=== PATIENT | female | born 1985 | race African-American/Black ===

== ENCOUNTER → 2017-05-02 | Outpatient (CLI) | payer OTHER ==
[2016-05-31 03:30] VITALS: BP 95/66
--- NOTE | 2017-05-02 17:34 | RAD ---
Obstetrical ultrasound, 05/02/2017: History: Check dates There is a single intrauterine fetus in a cephalic orientation. The biparietal diameter measures 8.2 cm compatible with a gestational age of 32-33 weeks. The femur length measurement suggests a gestational age of 34-35 weeks. The average gestational age based on all the measurements is 33 weeks and 4 days yielding a sonographic EDC of 06/16/2017. Normal activity and heart motion were seen. The heart rate is 150 bpm. The head to abdominal circumference ratio is slightly elevated at 1.13. This raises the possibility of asymmetric IUGR. The weight was estimated at 4 pounds and 10 ounces +/- 11 ounces. The amniotic fluid volume is at the lower limits of normal. The amniotic fluid index was measured at 5.8. Some of the structures were suboptimally delineated due to the late stage of the and the relatively low volume of amniotic fluid. The bladder and stomach were visualized. The kidneys are unremarkable. No specific abnormality is detected. The placenta lies anteriorly. The cervix could not be adequately visualized due to the overlying head. IMPRESSION: 1. Single viable intrauterine fetus of 33-34 weeks gestational age as described above. 2. Borderline oligohydramnios. 3. Mildly elevated head to abdominal circumference ratio raising the possibility of asymmetric IUGR. 4. Sonographic follow-up at a tertiary referral center is suggested.
== END | disposition home or self-care (01) ==
LOC: US 14:13
PROVIDERS: ATTEND Family Medicine
DX: O41.03X0 Oligohydramnios, third trimester, not applicable or unspecified (principal); Z3A.34 34 weeks gestation of pregnancy
CPT/HCPCS: 76805

== ENCOUNTER → 2017-12-05 | Outpatient (CLI) | payer OTHER | END | disposition home or self-care (01) | LOC: US 19:55 | DX: R10.2 Pelvic and perineal pain (principal); R10.11 Right upper quadrant pain | CPT/HCPCS: 76830; 76856 ==

== ENCOUNTER 2019-04-30 16:25 | Day surgery (SDC) | payer OTHER ==
[~2019-04-30 16:25] MED LIST changes: -DEXAMETHASONE SOD PHOS 4 MG/ML VIAL ONE; -DOXY100C14 PO; -HYDR-3164 PO; -KETOROLAC 30 MG/ML INJ FOR OR. INJ ONE; -LIDOCAINE 2% PF 5 ML VIAL. ONE; -METH0.2T36 PO; -ONDANSETRON PF 4 MG/2 ML VIAL. ONE; -OXYTOCIN 10 UNIT/ML VIAL. ONE; -PROPOFOL 20 ML IV ONE; -SEVOFLURANE 31 TO 60 MINUTES. IH ONE; -fentaNYL PF VIAL 100 MCG/2 ML VIAL ONE
[2019-04-30] MEDS ORDERED: PHENYLEPHRINE in 0.9% NACL PF 1 MG/10 ML SYRINGE. IV ONE (17:21)
[2019-04-30] MEDS ORDERED: GLYCOPYRROLATE 1 MG/5 ML VIAL. ONE (17:23)
--- NOTE | 2019-04-30 17:51 | PDOC ---
BRIEF OPERATIVE NOTE Date: Apr 30, 2019 Pre-Op Diagnosis Incomplete ab Post-Op Diagnosis Same Procedure Performed Suction D and C U/S guided Surgeon Onesimo Anesthesia Type: General Blood Loss 100cc Specimens Obtained POC Complications None TANIA ACEVEDO MD Apr 30, 2019 17:51
[2019-04-30] MEDS ORDERED: DOXY100C14 PO (17:55)
[2019-04-30] MEDS ORDERED: NAPR-514 PO (17:55)
[2019-04-30] MEDS ORDERED: METH0.2T36 PO (17:55)
[2019-04-30] MEDS ORDERED: HYDR-3164 PO (17:55)
[2019-04-30] MEDS ORDERED: IV RINGERS,LACTATED 1000ML 1,000 ML IV SCH (18:03)
[2019-04-30] MEDS ORDERED: fentaNYL PF VIAL 100 MCG/2 ML VIAL IV PRN (18:15)
[2019-04-30] MEDS ORDERED: HYDROmorphone 2 MG/ML VIAL IV PRN (18:15)
[2019-04-30] MEDS ORDERED: PROCHLORPERAZINE 10 MG/2 ML VIAL. IV PRN (18:15)
[2019-04-30] MEDS ORDERED: ONDANSETRON PF 4 MG/2 ML VIAL. IV PRN (18:15)
[2019-04-30] MEDS: MORPHINE SULFATE 2 MG/ML VIAL. IV PRN ×2 (18:20→18:29)
[2019-04-30] MEDS: fentaNYL PF VIAL 100 MCG/2 ML VIAL IV PRN ×2 (18:24→18:59)
--- NOTE | 2019-04-30 18:28 | OP ---
DATE OF SURGERY: 04/30/2019 PREOPERATIVE DIAGNOSIS: Incomplete . POSTOPERATIVE DIAGNOSIS: Incomplete . PROCEDURE: Suction D and C under ultrasound guidance. SURGEON: Tania Echols MD TELEMETRY REGISTERED NURSE: None. ANESTHESIA: General. ESTIMATED BLOOD LOSS: 100 mL. SPECIMENS: Products of conception. COMPLICATIONS: None. CONDITION: Stable. DESCRIPTION OF PROCEDURE: After risks, benefits, indications, alternatives discussed in detail with the patient, the patient was brought to OR theater, placed in the dorsal lithotomy position in Vini stirrups. After adequate general anesthesia, the patient prepped and draped in usual sterile manner. It was noted that patient had a female circumcision, clitoris, labia minora are absent. Cervix appeared normal, dilated up to approximately 4-5 Hegar dilator. Exam under anesthesia showed patient's uterus was axial at approximately 13-week size. With ultrasound guidance and dilating the cervix up to receive a #10 curved cannula, a gentle suction curettage was performed in all quadrants, which was documented by ultrasonography. A ring forceps was placed within the cavity to receive any other decidual or tissue approximately, a 1 x 4 piece of decidual tissue, which may or may not include the embryo, was included and handed off the operative field. A sharp curettage was also performed under ultrasound guidance. Curettage was noted by ultrasound by the usual cry. Suction cannula was once again placed. No further products of conception were seen going through the clear tubing. Areas of the cervix were abrased with single tooth tenaculum were noted and the ring was placed on that for additional hemostasis. Vaginal vault was wiped clear of any tissue or blood. The tubing was cleared with normal saline. The anterior lip of the cervix had a 0 Vicryl tie placed in for additional hemostasis from the puncture sites. The uterus had clamped down approximately 8-week size. No further bleeding noted. Procedure was terminated. Sponge, needle and instrument counts were correct x 2 per nursing staff. The patient went to postop anesthesia recovery in stable condition. TANIA ECHOLS MD DR: JAMAAL/nts JOB#: [id number] / [id number]
[2019-04-30] MEDS ORDERED: HYDROcodone/APAP 5/325MG 1 TAB TABLET ONE (18:56)
[2019-04-30] MEDS ORDERED: HYDROcodone/APAP 5/325MG 1 TAB TABLET PO ONE (19:00)
[2019-04-30 19:46] VITALS: BP 117/66
--- NOTE | 2019-04-30 20:13 | RAD ---
Exam: Ultrasound pelvis Indication: Intraoperative removal of products of conception Technique: Real-time grayscale and color Doppler images of the pelvis were obtained by the department photolithographic stripper. Comparisons: Ultrasound same day FINDINGS: Several images of the uterus labeled removal demonstrate anechoic structure within the endometrium with layering hyperechoic material. Subsequent images demonstrate less material in the endometrium. IMPRESSION: Intraoperative ultrasound as described above. See procedural note for further details. Electronically signed by: Miranda Briscoe MD (04/30/2019 8:10 PM) [employer]
--- NOTE | 2019-05-04 17:06 | PATHOLOGY ---
[facility] Accession Number: [id number] . 01 Material submitted: . product of conception - PRODUCTS OF CONCEPTION . 01 Clinical history: . demise: Incomplete . 02 Diagnosis: Uterine contents, suction D and C: - Products of conception, comprised of segments of tissue, placental membranous tissue, focally degenerating immature chorionic villi showing intervillous fibrin deposition and acute inflammation and showing villitis of unknown etiology, and segments of decidual tissue showing focal necrosis and acute inflammation. . (JPM:mm; 05/04/2019) [facility]/05/04/2019 . 02 Electronically signed: . Clark Del Toro MD, Pathologist NPI- [id number] . 01 Gross description: . The specimen is received in formalin, labeled "Ellen Suazo, products of conception", consists of a stockinet bag containing multiple irregular fragments of hemorrhagic and rollins-pink membranous soft tissues measuring 6.8 x 6.0 x 1.0. Also received within the container is an irregular fragment of arreola-white focally hemorrhagic rubbery tissue measuring 6.3 x 1.5 x 1.4 cm. This segment has a thin-walled cyst filled with viscous material and measuring 1.5 cm in greatest dimension. Spongy placental tissue, parts are identified with no discrete grapelike cystic structures. Representatively submitted in A1-A4. (A1-A2 = placental and tissue, A3 = cyst, separate fragment and A4 = food service representative section of separate fragment) ([facility]; 05/03/2019) [facility] . 02 Pathologist provided ICD-10: O03.4 . 02 CPT . 151749 Specimen Comment: A courtesy copy of this report has been sent to Specimen Comment: [phone], . Specimen Comment: Report sent to / DR REDDING Performed at: [address] [facility], [place] [id number] MD Zaki Barnes MD Phone: [phone] Performed at: [facility] [address] [place], [place] [id number] MD Clark Del Toro MD Phone: [phone]
== END 2019-04-30 19:56 | disposition home or self-care (01) ==
LOC: US 16:25
PROVIDERS: ATTEND Specialist
DX: O03.4 Incomplete spontaneous abortion without complication (principal); Z3A.08 8 weeks gestation of pregnancy
CPT/HCPCS: 59812; 76998; 88305; A7015; C1769; C1892; J0780; J2270; J2370; J3010; J3490; J7120

== ENCOUNTER → 2019-04-30 | Outpatient (CLI) | payer OTHER ==
[2017-05-19 10:28] VITALS: BP 90/50
[~2019-04-30] MED LIST: DEXAMETHASONE SOD PHOS 4 MG/ML VIAL ONE; DOXY100C14 PO; HYDR-3164 PO; KETOROLAC 30 MG/ML INJ FOR OR. INJ ONE; LIDOCAINE 2% PF 5 ML VIAL. ONE; METH0.2T36 PO; NAPR-514 PO; ONDANSETRON PF 4 MG/2 ML VIAL. ONE; OXYC1TAB15 PO; OXYTOCIN 10 UNIT/ML VIAL. ONE; PNV1TABL25 PO; PROPOFOL 20 ML IV ONE; SEVOFLURANE 31 TO 60 MINUTES. IH ONE; fentaNYL PF VIAL 100 MCG/2 ML VIAL ONE
--- NOTE | 2019-04-30 16:36 | RAD ---
Indication: Confirm demise. IMPRESSION: Grayscale, color Doppler and spectral waveform images of the pelvis COMPARISON: None FINDINGS: Intrauterine seen with crown-rump length measuring 3.5 cm corresponding to estimated gestation age of 10 weeks 3 days. No cardiac activity seen. Uterus is anteverted and measures 11.0 x 6.1 x 6.9 cm. Placenta is posterior and fundal in location. No free pelvic fluid. IMPRESSION: Intrauterine without sonographic evidence of cardiac activity. Electronically signed by: Rigo Becker DO (04/30/2019 4:33 PM) [facility]
== END | disposition home or self-care (01) ==
LOC: US 14:54
PROVIDERS: ATTEND Specialist
DX: O36.4XX0 Maternal care for intrauterine death, not applicable or unspecified (principal); Z3A.10 10 weeks gestation of pregnancy
CPT/HCPCS: 76801; J1100; J1885; J2001; J2405; J2590; J2704; J3010

== ENCOUNTER 2020-09-06 11:55 | Emergency (ER) | payer OTHER ==
[~2020-09-06] VITALS: Ht 165.1 cm; Wt 70.0 kg
[~2020-09-06 11:55] MED LIST changes: +DOXY100C14 PO; +HYDR-2761 PO; +HYDR-3164 PO; +METH0.2T36 PO; +ONDA-84 PO; +PANT40TA77 PO; +SUCR1TAB PO
--- NOTE | 2020-09-06 12:37 | ED.ADGEN ---
Past Medical History Past Medical History: No Pertinent History Past Surgical History: Smoking Status: Never Smoker Alcohol Use: None Drug Use: None General Adult EDM: Chief Complaint: CHEST WALL PAIN HPI: HPI: Patient is a 35-year-old female who arrives ambulatory to the emergency [facility] complaining of upper chest wall pain which has been ongoing for 2 days. Patient reports during this time she has had pain which is associate with deep breathing and movement. 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 The patient states despite having this chest pain she has not had any diaphoresis, nausea or cough. She further denies any fever or shortness of air. Furthermore she denies any new/coronavirus exposures. She is awake, alert and nontoxic appearing. Review of Systems: Review of Systems: Constitutional: Denies fever or chills. [] Eyes: Denies change in visual acuity. [] HENT: Denies nasal congestion or sore throat. [] Respiratory: Reports chest wall pain. denies cough or shortness of breath. [] Cardiovascular: Denies chest pain or edema. [] GI: Denies abdominal pain, nausea, vomiting, bloody stools or diarrhea. [] : Denies dysuria. [] Musculoskeletal: Denies back pain or joint pain. [] Integument: Denies rash. [] Neurologic: Denies headache, focal weakness or sensory changes. [] Endocrine: Denies polyuria or polydipsia. [] Lymphatic: Denies swollen glands. [] Psychiatric: Denies depression or anxiety. [] Allergies: Allergies: Allergies Coded Allergies Type Severity Reaction Last Updated Verified No Known Drug Allergies 11/13/19 No Physical Exam: PE: Constitutional: Well developed, well nourished, no acute distress, non-toxic appearance. [] HENT: Normocephalic, atraumatic, bilateral external ears normal, oropharynx moist, no oral exudates, nose normal. [] Eyes: PERRLA, EOMI, conjunctiva normal, no discharge. [] Neck: Normal range of motion, no tenderness, supple, no stridor. [] Cardiovascular:Heart rate regular rhythm, no murmur [] Lungs & Thorax: Patient has reproducible tenderness of the chest wall. Bilateral breath sounds clear to auscultation [] Abdomen: Bowel sounds normal, soft, no tenderness, no masses, no pulsatile masses. [] Skin: Warm, dry, no erythema, no rash. [] Back: No tenderness, no CVA tenderness. [] Extremities: No tenderness, no cyanosis, no clubbing, ROM intact, no edema. [] Neurologic: Alert and oriented X 3, normal motor function, normal sensory function, no focal deficits noted. [] Psychologic: Affect normal, judgement normal, mood normal. [] Current Patient Data: Labs: Laboratory Tests Test 09/06/20 13:09 White Blood Count 4.3 x10^3/uL (4.0-11.0) Red Blood Count 4.00 x10^6/uL (3.50-5.40) Hemoglobin 12.2 g/dL (12.0-15.5) Hematocrit 35.4 % (36.0-47.0) L Mean Corpuscular Volume 89 fL (79-100) Mean Corpuscular Hemoglobin 31 pg (25-35) Mean Corpuscular Hemoglobin Concent 34 g/dL (31-37) Red Cell Distribution Width 12.3 % (11.5-14.5) Platelet Count 276 x10^3/uL (140-400) Neutrophils (%) (Auto) 53 % (31-73) Lymphocytes (%) (Auto) 34 % (24-48) Monocytes (%) (Auto) 12 % (0-9) H Eosinophils (%) (Auto) 1 % (0-3) Basophils (%) (Auto) 1 % (0-3) Neutrophils # (Auto) 2.2 x10^3/uL (1.8-7.7) Lymphocytes # (Auto) 1.4 x10^3/uL (1.0-4.8) Monocytes # (Auto) 0.5 x10^3/uL (0.0-1.1) Eosinophils # (Auto) 0.0 x10^3/uL (0.0-0.7) Basophils # (Auto) 0.0 x10^3/uL (0.0-0.2) Sodium Level 140 mmol/L (136-145) Potassium Level 3.5 mmol/L (3.5-5.1) Chloride Level 106 mmol/L (98-107) Carbon Dioxide Level 24 mmol/L (21-32) Anion Gap 10 (6-14) Blood Urea Nitrogen 5 mg/dL (7-20) L Creatinine 0.7 mg/dL (0.6-1.0) Estimated GFR (Cockcroft-Gault) 113.9 BUN/Creatinine Ratio 7 (6-20) Glucose Level 98 mg/dL (70-99) Calcium Level 8.8 mg/dL (8.5-10.1) Total Bilirubin 0.6 mg/dL (0.2-1.0) Aspartate Amino Transferase (AST) 13 U/L (15-37) L Alanine Aminotransferase (ALT) 15 U/L (14-59) Alkaline Phosphatase 67 U/L (46-116) Troponin I Quantitative < 0.017 ng/mL (0.000-0.055) US-Oua-R-Type Natriuretic Peptide 30 pg/mL (0-124) Total Protein 7.3 g/dL (6.4-8.2) Albumin 3.4 g/dL (3.4-5.0) Albumin/Globulin Ratio 0.9 (1.0-1.7) L Laboratory Tests 09/06/20 13:09 Laboratory Tests 09/06/20 13:09 EKG: EKG: EKG was obtained at 1301 hrs. a bradycardic rhythm with a ventricular rate of 54 bpm. There are no signs of ectopy. Intervals are normal and there are no ST/T wave changes present. Heart Score: HEART Score for Chest Pain: HEART Score for Chest Pain Response (Comments) Value History Slighlty/Non-Suspicious 0 ECG Normal 0 Age < 45 0 Risk Factors No Risk Factors 0 Troponin < Normal Limit 0 Total 0 Risk Factors: Risk Factors: DM, Current or recent (<one month) smoker, HTN, HLP, family history of CAD, obesity. Risk Scores: Score 0 - 3: 2.5% MACE over next 6 weeks - Discharge Home Score 4 - 6: 20.3% MACE over next 6 weeks - Admit for Clinical Observation Score 7 - 10: 72.7% MACE over next 6 weeks - Early Invasive Strategies Radiology/Procedures: Radiology/Procedures: [] Impression: [facility] [address] [place], [place] [id number] IMAGING REPORT Signed PATIENT: ARORAVICKIE Velazquez ACCOUNT: [id number] : 1985 LOCATION: ER AGE: 35 SEX: F EXAM STATUS: REG ER ORD. PHYSICIAN: CHITO JAIME DO REASON: CHEST PAIN PROCEDURE: PORTABLE CHEST 1V XR CHEST 1V History: Reason: CHEST PAIN / Spl. Instructions: / History: Comparison: May 31, 2016 Findings: No consolidation or pleural effusion. Normal heart size. No pneumothorax. Impression: 1. No acute cardiopulmonary process. Electronically signed by: Wilmar Sharpe DO (09/06/2020 12:59 PM) [id number] DICTATED and SIGNED BY: WILMAR SHARPE DO DATE: 09/06/20 [id number] 0 Course & Med Decision Making: Course & Med Decision Making Pertinent Labs and Imaging studies reviewed. (See chart for details) [] Dragon Disclaimer: Dragon Disclaimer: This electronic medical record was generated, in whole or in part, using a voice recognition dictation system. Departure Departure Impression: Primary Impression: Chest wall muscle strain Disposition: 01 DC HOME SELF CARE/HOMELESS Condition: GOOD Referrals: KYLE REDDING MD (PCP) Patient Instructions: Chest Wall Pain Scripts Naproxen Sodium (ANAPROX DS) 550 Mg Tablet 1 TAB PO BID for 5 Days, #10 TAB 0 Refills Prov: CHITO JAIME DO 09/06/20 CHITO JAIME DO Sep 06, 2020 12:37
--- NOTE | 2020-09-06 13:01 | RAD ---
XR CHEST 1V History: Reason: CHEST PAIN / Spl. Instructions: / History: Comparison: May 31, 2016 Findings: No consolidation or pleural effusion. Normal heart size. No pneumothorax. Impression: 1. No acute cardiopulmonary process. Electronically signed by: Wilmar Sharpe DO (09/06/2020 12:59 PM) [id number]
[2020-09-06 13:17] LABS: BASO % 1 % (0-3); EOS % 1 % (0-3); HEMATOCRIT 35.4 % (36.0-47.0); HEMOGLOBIN 12.2 g/dL (12.0-15.5); LYMPH # 1.4 x10^3/uL (1.0-4.8); LYMPH % 34 % (24-48); MEAN CORPUSCULAR HEMOGLOBIN 31 pg (25-35); MEAN CORPUSCULAR HGB CONC 34 g/dL (31-37); MEAN CORPUSCULAR VOLUME 89 fL (79-100); MONO # 0.5 x10^3/uL (0.0-1.1); MONO % 12 % (0-9); NEUT # 2.2 x10^3/uL (1.8-7.7); NEUT % 53 % (31-73); PLATELET COUNT 276 x10^3/uL (140-400); RED CELL DISTRIBUTION WIDTH 12.3 % (11.5-14.5); WHITE BLOOD COUNT 4.3 x10^3/uL (4.0-11.0)
[2020-09-06 13:47] LABS: CALCIUM 8.8 mg/dL (8.5-10.1); CREATININE 0.7 mg/dL (0.6-1.0); GFR 113.9; POTASSIUM 3.5 mmol/L (3.5-5.1)
[2020-09-06 13:54] LABS: ALBUMIN 3.4 g/dL (3.4-5.0); ALBUMIN/GLOBULIN RATIO 0.9 (1.0-1.7); TOTAL BILIRUBIN 0.6 mg/dL (0.2-1.0); TOTAL PROTEIN 7.3 g/dL (6.4-8.2)
[2020-09-06] MEDS ORDERED: NAPR-682 PO (13:59)
[2020-09-06 14:10] VITALS: BP 107/74
== END 2020-09-06 14:24 | disposition home or self-care (01) ==
LOC: ER 11:55
DX: S29.011A Strain of muscle and tendon of front wall of thorax, initial encounter (principal); X50.9XXA Other and unspecified overexertion or strenuous movements or postures, initial encounter; Y93.89 Activity, other specified; Y92.89 Other specified places as the place of occurrence of the external cause; Y99.8 Other external cause status
CPT/HCPCS: 36415; 71045; 80053; 83880; 84484; 85025; 93005; 99285-25